=== PATIENT | female | born 1970 | race Caucasian/White ===

== ENCOUNTER 2017-11-20 06:29 | Day surgery (SDC) | payer OTHER ==
[2017-11-20] MEDS: CEFAZOLIN 1 GM/50 ML (PMX) 50 ML IVPB ×2 (10:20→11:00)
[2017-11-20] MEDS: HEPARIN 1000 UNITS/ML 10 ML INJ (10:45)
[2017-11-20] MEDS: SOD CHLORIDE 0.9% 1,000 ML IV (11:00)
[2017-11-20] MEDS: POLYMYXIN/BACITRACIN 1L IRRIG IRR (11:30)
[2017-11-20] MEDS: FENTAnyl 50 MCG/ML VIAL (11:35)
[2017-11-20] MEDS: MIDAZOLAM 1 MG/ML 2 ML INJ (11:40)
[2017-11-20] MEDS: LIDOCAINE 1%/EPI 30 ML INJ (11:40)
[2017-11-20] MEDS ORDERED: HYDROCODONE/APAP (5/325) TAB PO (12:30)
== END 2017-11-20 15:00 | disposition home or self-care (01) ==
LOC: SDS 06:29
DX: C50.911 Malignant neoplasm of unspecified site of right female breast (principal); C50.912 Malignant neoplasm of unspecified site of left female breast
CPT/HCPCS: 36561; 76942; 93306

== ENCOUNTER 2018-05-11 07:10 | Inpatient (IN) | payer OTHER ==
[~2018-05-11 07:10] MED LIST: LIDOCAINE 2% (SDV) 5 ML INJ
[2018-05-11 09:14] LABS: ADD MAN DIFF? NO
[2018-05-11 09:19] LABS: WHITE BLOOD COUNT 4.1 10^3/ul (4.8-10.8)
[2018-05-11 09:19] LABS: BASOPHILS % 0.2 % (0.0-2.0); EOSINOPHILS # 0.1 10^3/ul (0.0-0.5); EOSINOPHILS % 1.2 % (0.0-7.0); HEMATOCRIT 36.5 % (37.0-47.0); HEMOGLOBIN 12.1 g/dl (12.0-16.0); LYMPHOCYTES % 24.8 % (15.0-51.0); MEAN CORPUSCULAR HGB CONC 33.2 g/dl (32.0-37.0); MEAN CORPUSCULAR VOLUME 90.3 fl (82.0-101.0); MONOCYTE # 0.4 10^3/ul (0.3-0.9); MONOCYTES % 8.8 % (0.0-11.0); NEUTROPHIL # 2.6 10^3/ul (1.6-7.5); NEUTROPHILS % 64.8 % (39.0-77.0); PLATELET COUNT 110 10^3/UL (140-415); RED BLOOD COUNT 4.04 10^6/ul (4.20-5.40); RED CELL DISTRIBUTION WIDTH 13.5 % (11.5-14.5)
[2018-05-11 09:37] LABS: ALANINE AMINOTRANSFERASE 22 IU/L (13-69); ALBUMIN 4.5 g/dl (3.3-4.9); ALBUMIN/GLOBULIN RATIO 1.45; ALKALINE PHOSPHATASE 88 IU/L (42-121); ANION GAP 12 (8-16); ASPARTATE AMINO TRANSFERASE 22 IU/L (15-46); BILIRUBIN,INDIRECT 0.7 mg/dl (0-1.1); BILIRUBIN,TOTAL 0.7 mg/dl (0.2-1.3); BLOOD UREA NITROGEN 15 mg/dl (7-20); CALCIUM 10.2 mg/dl (8.4-10.2); CARBON DIOXIDE 25 mmol/L (21-31); CHLORIDE 108 mmol/L (97-110); GLUCOSE 104 mg/dl (70-220); SODIUM 141 mmol/L (135-144); TOTAL PROTEIN 7.6 g/dl (6.1-8.1)
[2018-05-11 09:48] LABS: INR 0.89; PROTIME 12.1 Sec (11.9-14.9); PT RATIO 0.9
[2018-05-11 09:49] LABS: PARTIAL THROMBOPLASTIN TIME 26.9 Sec (25.0-35.0)
[2018-05-11 09:54] LABS: HOLD TRANSMISSIONS 1; MEAN PLATELET VOLUME 10.7 fl (7.4-10.4); POSITIVE DIFF @See below
[2018-05-11] MEDS: SOD CHLORIDE 0.9% 1,000 ML IV (10:43)
[2018-05-11] MEDS ORDERED: PROPOFOL 20 ML (14:17)
[2018-05-11] MEDS ORDERED: SUGAMMADEX SODIUM 200 MG/2 ML VIAL IV (14:17)
[2018-05-11] MEDS ORDERED: CEFAZOLIN 1 GM INJ (14:17)
[2018-05-11] MEDS ORDERED: ROCURONIUM 50 MG INJ (14:17)
[2018-05-11] MEDS ORDERED: FENTAnyl 50 MCG/ML VIAL ×2 (14:17→15:36)
[2018-05-11] MEDS ORDERED: SUCCINYLCHOLINE CHLORIDE 100 MG/5 ML SYG IV (14:17)
[2018-05-11] MEDS: CEFAZOLIN 2 GM/50 ML (PMX) 50 ML IVPB (14:41)
[2018-05-11] MEDS ORDERED: LABETALOL HCL 20MG INJ (15:34)
[2018-05-11] MEDS ORDERED: ONDANSETRON 4 MG INJ IV ×3 (16:00→17:00)
[2018-05-11] MEDS: hydrALAzine 20 MG INJ IV (16:48)
[2018-05-11] MEDS ORDERED: FENTAnyl 50 MCG/ML VIAL IV ×2 (17:00)
[2018-05-11] MEDS ORDERED: LABETALOL HCL 20MG INJ IV (17:00)
[2018-05-11] MEDS ORDERED: MEPERIDINE 25 MG INJ IV (17:00)
[2018-05-11] MEDS ORDERED: ALBUTEROL 0.083% (NEB) 2.5 MG/3 ML AMP HHN ×2 (17:00)
[2018-05-11] MEDS ORDERED: HYDROmorphONE 1 MG/5 ML IV SYRINGE IV ×5 (17:00)
[2018-05-11] MEDS ORDERED: METOCLOPRAMIDE 10 MG INJ IV ×2 (17:00)
[2018-05-11] MEDS ORDERED: DIPHENHYDRAMINE 50 MG INJ IV ×2 (17:00)
[2018-05-11] MEDS: MEPERIDINE 25 MG INJ IV (17:08)
[2018-05-11] MEDS: FENTAnyl 50 MCG/ML VIAL IV ×2 (17:08→17:21)
[2018-05-11] MEDS: HYDROmorphONE 1 MG/5 ML IV SYRINGE IV (17:19)
[2018-05-11] MEDS: D5W-0.45 NACL + KCL 20 MEQ 1,000 ML IV (18:52)
[2018-05-12] MEDS: D5W-0.45 NACL + KCL 20 MEQ 1,000 ML IV ×3 (03:01→11:14)
[2018-05-12 06:53] LABS: ADD MAN DIFF? NO
[2018-05-12 06:57] LABS: ABNORMAL IP MESSAGE 1; BASOPHILS % 0.2 % (0.0-2.0); EOSINOPHILS % 0.6 % (0.0-7.0); HEMATOCRIT 29.9 % (37.0-47.0); HEMOGLOBIN 9.9 g/dl (12.0-16.0); LYMPHOCYTES # 0.7 10^3/ul (0.8-2.9); MEAN CORPUSCULAR HEMOGLOBIN 30.8 pg (29.0-33.0); MEAN CORPUSCULAR HGB CONC 33.1 g/dl (32.0-37.0); MEAN CORPUSCULAR VOLUME 93.1 fl (82.0-101.0); MONOCYTE # 0.4 10^3/ul (0.3-0.9); MONOCYTES % 8.1 % (0.0-11.0); NEUTROPHIL # 4.1 10^3/ul (1.6-7.5); NEUTROPHILS % 77.7 % (39.0-77.0); PLATELET COUNT 87 10^3/UL (140-415); RED BLOOD COUNT 3.21 10^6/ul (4.20-5.40); RED CELL DISTRIBUTION WIDTH 13.5 % (11.5-14.5)
[2018-05-12 06:57] LABS: WHITE BLOOD COUNT 5.3 10^3/ul (4.8-10.8)
[2018-05-12 07:11] LABS: POSITIVE DIFF @See below
[2018-05-12 07:21] LABS: ANION GAP 9 (8-16); BLOOD UREA NITROGEN 11 mg/dl (7-20); CALCIUM 9.5 mg/dl (8.4-10.2); CARBON DIOXIDE 24 mmol/L (21-31); CHLORIDE 106 mmol/L (97-110); GLUCOSE 114 mg/dl (70-220); SODIUM 135 mmol/L (135-144)
[2018-05-12] MEDS: ACETAMINOPHEN 1000MG/100ML IV 100 ML IVPB (18:55)
[2018-05-13] MEDS: D5W-0.45 NACL + KCL 20 MEQ 1,000 ML IV ×3 (01:40→17:00)
[2018-05-13 07:42] LABS: ADD MAN DIFF? NO
[2018-05-13 07:44] LABS: ABNORMAL IP MESSAGE 1; EOSINOPHILS % 0.9 % (0.0-7.0); HEMATOCRIT 29.6 % (37.0-47.0); HEMOGLOBIN 9.5 g/dl (12.0-16.0); LYMPHOCYTES # 0.6 10^3/ul (0.8-2.9); LYMPHOCYTES % 15.8 % (15.0-51.0); MEAN CORPUSCULAR HEMOGLOBIN 30.1 pg (29.0-33.0); MEAN CORPUSCULAR HGB CONC 32.1 g/dl (32.0-37.0); MEAN CORPUSCULAR VOLUME 93.7 fl (82.0-101.0); MEAN PLATELET VOLUME 10.6 fl (7.4-10.4); MONOCYTE # 0.3 10^3/ul (0.3-0.9); NEUTROPHIL # 2.6 10^3/ul (1.6-7.5); NEUTROPHILS % 75.3 % (39.0-77.0); RED BLOOD COUNT 3.16 10^6/ul (4.20-5.40); RED CELL DISTRIBUTION WIDTH 13.5 % (11.5-14.5)
[2018-05-13 07:44] LABS: WHITE BLOOD COUNT 3.5 10^3/ul (4.8-10.8)
[2018-05-13 07:45] LABS: PLATELET COUNT 78 10^3/UL (140-415); POSITIVE DIFF @See below
[2018-05-13 08:06] LABS: ANION GAP 11 (8-16); BLOOD UREA NITROGEN 13 mg/dl (7-20); CALCIUM 9.3 mg/dl (8.4-10.2); CARBON DIOXIDE 23 mmol/L (21-31); CHLORIDE 108 mmol/L (97-110); CREATININE 0.46 mg/dl (0.44-1.00); GLUCOSE 129 mg/dl (70-220); POTASSIUM 4.2 mmol/L (3.5-5.1); SODIUM 138 mmol/L (135-144)
[2018-05-13] MEDS: morphine 2 MG INJ IV (12:50)
[2018-05-13] MEDS: ACETAMINOPHEN 1000MG/100ML IV 100 ML IVPB (17:59)
[2018-05-14] MEDS: D5W-0.45 NACL + KCL 20 MEQ 1,000 ML IV ×2 (02:57→18:00)
[2018-05-14 05:52] LABS: ADD MAN DIFF? NO
[2018-05-14 05:59] LABS: ABNORMAL IP MESSAGE 1; BASOPHILS % 0.3 % (0.0-2.0); EOSINOPHILS # 0.1 10^3/ul (0.0-0.5); EOSINOPHILS % 1.7 % (0.0-7.0); HEMATOCRIT 30.8 % (37.0-47.0); HEMOGLOBIN 9.9 g/dl (12.0-16.0); LYMPHOCYTES # 0.7 10^3/ul (0.8-2.9); MEAN CORPUSCULAR HEMOGLOBIN 29.9 pg (29.0-33.0); MEAN CORPUSCULAR HGB CONC 32.1 g/dl (32.0-37.0); MEAN CORPUSCULAR VOLUME 93.1 fl (82.0-101.0); MEAN PLATELET VOLUME 10.2 fl (7.4-10.4); MONOCYTE # 0.3 10^3/ul (0.3-0.9); MONOCYTES % 9.7 % (0.0-11.0); RED BLOOD COUNT 3.31 10^6/ul (4.20-5.40); RED CELL DISTRIBUTION WIDTH 13.7 % (11.5-14.5)
[2018-05-14 06:24] LABS: ANION GAP 11 (8-16); BLOOD UREA NITROGEN 16 mg/dl (7-20); CALCIUM 9.7 mg/dl (8.4-10.2); CARBON DIOXIDE 24 mmol/L (21-31); CHLORIDE 107 mmol/L (97-110); CREATININE 0.49 mg/dl (0.44-1.00); GLUCOSE 121 mg/dl (70-220); POTASSIUM 4.3 mmol/L (3.5-5.1); SODIUM 138 mmol/L (135-144)
[2018-05-14 06:25] LABS: POSITIVE DIFF @See below
[2018-05-14 06:26] LABS: PLATELET COUNT 67 10^3/UL (140-415)
[2018-05-14] MEDS ORDERED: morphine LIQ (10 MG/5 ML) CUP PO (17:00)
== END 2018-05-14 20:00 | disposition home or self-care (01) | DRG 580 ==
LOC: REC 07:10 → 2NE 18:10
PROC: 0HTV0ZZ Resection of Bilateral Breast, Open Approach (ICD-10-PCS; principal; 2018-05-11 12:30)
PROC: 0KBJ0ZZ Excision of Left Thorax Muscle, Open Approach (ICD-10-PCS; 2018-05-11 12:30)
PROC: 07T60ZZ Resection of Left Axillary Lymphatic, Open Approach (ICD-10-PCS; 2018-05-11 12:30)
DX: C50.912 Malignant neoplasm of unspecified site of left female breast (principal); C77.3 Secondary and unspecified malignant neoplasm of axilla and upper limb lymph nodes; R50.82 Postprocedural fever; R42 Dizziness and giddiness; Z92.21 Personal history of antineoplastic chemotherapy; Z85.3 Personal history of malignant neoplasm of breast
CPT/HCPCS: 71045; 80048; 80053; 82962; 85025; 85610; 85730; 88307; 93005

== ENCOUNTER 2018-09-28 10:12 | Day surgery (SDC) | payer OTHER ==
[2018-09-28] MEDS: CEFAZOLIN 2 GM/50 ML (PMX) 50 ML IVPB (08:00)
[~2018-09-28 10:12] MED LIST changes: -LIDOCAINE 2% (SDV) 5 ML INJ; +SEVOFLURANE 15 MIN; +SOD CHLORIDE 0.9% 1,000 ML IV
[2018-09-28] MEDS ORDERED: CEFAZOLIN 1 GM INJ (12:59)
[2018-09-28] MEDS ORDERED: LIDOCAINE 2% (SDV) 5 ML INJ (12:59)
[2018-09-28] MEDS ORDERED: PROPOFOL 20 ML (12:59)
[2018-09-28] MEDS ORDERED: METOCLOPRAMIDE 10 MG INJ (13:00)
[2018-09-28] MEDS ORDERED: ONDANSETRON 4 MG INJ (13:00)
[2018-09-28] MEDS ORDERED: MEPERIDINE 100 MG INJ (13:00)
[2018-09-28] MEDS ORDERED: LABETALOL HCL 20MG INJ IV (13:30)
[2018-09-28] MEDS ORDERED: OXYCODONE/ACETAMINOPHEN (5/325) TAB PO ×2 (13:30)
[2018-09-28] MEDS ORDERED: DIPHENHYDRAMINE 50 MG INJ IV (13:30)
[2018-09-28] MEDS ORDERED: FENTAnyl 50 MCG/ML VIAL IV ×2 (13:30)
[2018-09-28] MEDS ORDERED: ONDANSETRON 4 MG INJ IV ×2 (13:30→14:30)
[2018-09-28] MEDS ORDERED: HYDROmorphONE 1 MG/5 ML IV SYRINGE IV ×3 (13:30)
[2018-09-28] MEDS ORDERED: hydrALAzine 20 MG INJ IV (13:30)
[2018-09-28] MEDS ORDERED: METOCLOPRAMIDE 10 MG INJ IV (13:30)
[2018-09-28] MEDS ORDERED: MEPERIDINE 25 MG INJ IV (13:30)
[2018-09-28] MEDS ORDERED: EPHEDrine SULFATE 50 MG/5 ML SYG IV (13:30)
[2018-09-28] MEDS ORDERED: MIDAZOLAM 1 MG/ML 2 ML INJ IV (13:30)
[2018-09-28] MEDS ORDERED: ACETAMINOPHEN 1000MG/100ML IV 100 ML IVPB (14:30)
[2018-09-28] MEDS: FENTAnyl 50 MCG/ML VIAL IV (14:44)
[2018-09-28] MEDS: HYDROmorphONE 0.5 MG/0.5 ML SYG IV (16:31)
[2018-09-28] MEDS: D5W-0.45 NACL + KCL 20 MEQ 1,000 ML IV ×2 (17:16→22:23)
[2018-09-29] MEDS: D5W-0.45 NACL + KCL 20 MEQ 1,000 ML IV ×2 (01:30→09:32)
[2018-09-29 05:21] LABS: ADD MAN DIFF? NO
[2018-09-29 05:24] LABS: BASOPHILS % 0.2 % (0.0-2.0); EOSINOPHILS # 0.1 10^3/ul (0.0-0.5); EOSINOPHILS % 2.1 % (0.0-7.0); HEMATOCRIT 33.2 % (37.0-47.0); HEMOGLOBIN 10.7 g/dl (12.0-16.0); LYMPHOCYTES # 0.9 10^3/ul (0.8-2.9); LYMPHOCYTES % 18.1 % (15.0-51.0); MEAN CORPUSCULAR HEMOGLOBIN 29.3 pg (29.0-33.0); MEAN CORPUSCULAR HGB CONC 32.2 g/dl (32.0-37.0); MEAN PLATELET VOLUME 9.9 fl (7.4-10.4); MONOCYTE # 0.5 10^3/ul (0.3-0.9); MONOCYTES % 8.8 % (0.0-11.0); NEUTROPHIL # 3.6 10^3/ul (1.6-7.5); NEUTROPHILS % 70.6 % (39.0-77.0); PLATELET COUNT 131 10^3/UL (140-415); RED BLOOD COUNT 3.65 10^6/ul (4.20-5.40); RED CELL DISTRIBUTION WIDTH 12.6 % (11.5-14.5)
[2018-09-29 05:24] LABS: WHITE BLOOD COUNT 5.1 10^3/ul (4.8-10.8)
[2018-09-29 05:43] LABS: ANION GAP 7 (5-13); BLOOD UREA NITROGEN 7 mg/dl (7-20); CALCIUM 9.4 mg/dl (8.4-10.2); CARBON DIOXIDE 26 mmol/L (21-31); CHLORIDE 107 mmol/L (97-110); CREATININE 0.53 mg/dl (0.44-1.00); Estimated GFR > 60 mL/min (>60); GLUCOSE 109 mg/dl (70-220); POTASSIUM 4.1 mmol/L (3.5-5.1); SODIUM 140 mmol/L (135-144)
== END 2018-09-29 15:00 | disposition home or self-care (01) ==
LOC: SDS 10:12 → MS1 16:07
DX: C50.812 Malignant neoplasm of overlapping sites of left female breast (principal)
CPT/HCPCS: 11606; 71045; 80048; 85025; 88307; 93005